=== PATIENT | male | born 1995 | race Caucasian/White ===

== ENCOUNTER 2021-08-23 18:36 | Emergency (ER) | payer MEDICAID, SELFPAY ==
--- NOTE | 2021-08-23 18:51 | ED.OVERDOSE ---
HPI - Overdose General Chief Complaint: Overdose Stated Complaint: overdose Source: patient and EMS Mode of arrival: EMS Limitations: no limitations History of Present Illness HPI Narrative: 26-year-old male presents via EMS for heroin overdose. Patient states that he has been clean for approximately 2 months and is in a program. When he was cleaning his room he found a stash and stated that he was weak and used 1 bag from a bundle. complaint: accidental overdose Onset (ago): hour(s) (Within the hour of arrival) Timing confirmed by: family member Intent: other (Wanted to get high) Context: Intentional Overdose: drug/ETOH problems Context: Accidental Overdose: wanted to get high Associated symptoms: depression Treatments Prior to Arrival: none Related Data Allergies Allergy/AdvReac Type Severity Reaction Status Date / Time shellfish derived Allergy Severe THROAT Unverified 11/30/19 18:29 [SHELLFISH DERIVED] SWELLING Review of Systems Review of Systems: Constitutional: No Fever, No Chills ENT/Mouth: No sore throat, No Rhinorrhea Eyes: No Eye Pain, No Swelling, No Redness Cardiovascular: No Chest Pain, No SOB Respiratory: No Cough, No Sputum Gastrointestinal: No Nausea, No Vomiting, No Diarrhea, No abdominal Pain Genitourinary: No Dysuria, No Hematuria Musculoskeletal: No joint pain, No Myalgias, No Joint Swelling Skin: No Skin Lesions, No rash Neuro: No Weakness, No Numbness, No Loss of Consciousness, No Dizziness, No Headache Psych: Positive heroin overdose, No Anxiety, No Depression, No SI/HI/AH/VH Heme/Lymph: No Bruising, No Bleeding,No Lymphadenopathy Endocrine: No Polyuria, No Polydipsia Yes all other systems are reviewed and are negative [facility] Past Medical History Attestation statement: The following information was validated with the patient. Source: old records reviewed Social History Social History Advance Directives: No Physical Exam Vital Signs: Vital Signs: Last Vital Signs Temp 95.9 F L 08/23/21 19:35 Pulse 89 08/23/21 19:35 Resp 16 08/23/21 19:35 BP 134/89 08/23/21 19:35 Pulse Ox 92 08/23/21 19:35 O2 Del Method 08/23/21 19:35 Appearance: Alert. Oriented X3. Moderate emotional distress. Crying. Eyes: Pupils equal, round and reactive to light. Sclera nonicteric. ENT: Pharynx normal. Neck: Normal inspection. Neck supple. CVS: Normal heart rate and rhythm. Pulses normal. Respiratory: No respiratory distress. Breath sounds normal. Abdomen: Soft and nontender. Vomiting. Skin: Skin warm and dry. Normal skin color. Normal skin turgor. Extremities: No lower extremity edema. Moves all extremities against resistance. Neuro: No motor deficit. No sensory deficit. Cranial nerves 2-12 intact. Course Course Course Narrative: 26-year-old male presents via EMS for heroin overdose. States that the overdose was accidental. Found a bundle of heroin while he was cleaning his room and decided to use a bag. He has been in a program for approximately 2 months and has been clean. Stated he felt weak when he found the bundle of heroin in his room. Overdose was accidental. Patient is vomiting at the time of my evaluation. O2 sats remained between 94 and 97% on room air. He does nod off every once in a while but is easily arousable. He is polite and cooperative at this time. 19:49 maintaining O2 sats at 97% on room air. Easily arousable. 20:40 maintaining O2 sats at 97% on room air. Easily arousable. Even unlabored respirations. Patient to return to detox program. Patient verbalized understanding of and agrees to plan of care to discharge home. Verbalized understanding of signs and symptoms indicating need for emergent intervention MDM - Overdose Differential Diagnosis Differential diagnosis: Likely drug overdose Medical Records Attestation: I reviewed the patient's medical records. Discharge Plan Discharge Clinical Impression: Drug overdose Patient Disposition: Home, Self-Care Instructions: Adult Overdose (ED) Additional Instructions: Please return to detox. Thank you for choosing this emergency department for evaluation. Please follow-up with primary care physician as needed. Return to the emergency department for any new, concerning, or worsening symptoms. Interventions: ED Discharge Assessment Last Done: 08/23/21 20:54 Discharge Date/Time: 08/23/21 21:00
[2021-08-23 19:35] VITALS: BP 134/89; PULSE 89; RESP 16; TEMP 35.5; O2SAT 92
--- NOTE | 2021-08-23 20:12 | MHC.RECOVSUP ---
? Reason for consult:Recovery Support o Current location:ED22H o Identified substance use concern: Heroine - Overdose - Support ? Intervention: o Harm reduction discussion ? Plan: o ? Additional information:Patient refuses detox, Patient is in a [facility] program and wants to be discharged. Patient was in recoveryx2 mos
== END 2021-08-23 21:00 | disposition home or self-care (01) ==
PROVIDERS: Emergency Provider Internal Medicine
DX: T40.1X1A Poisoning by heroin, accidental (unintentional), initial encounter (principal); Y92.9 Unspecified place or not applicable
CPT/HCPCS: 99282

== ENCOUNTER 2021-10-14 11:41 | Emergency (ER) | payer MEDICAID, SELFPAY ==
[2021-10-14 11:53] VITALS: BP 114/61; BP 148/82; PULSE 88; PULSE 93; RESP 18; TEMP 36.7; O2SAT 100; O2SAT 98; BMI 19.0
--- NOTE | 2021-10-14 12:20 | MHC.CARE ---
Call from patient's aunt, Aurora Rodriguez ([phone]), she wanted providers to know that patient is also depressed and she thinks he needs to speak with someone about that while he is here. She is coming to the ED today to see her nephew/offer support.
--- NOTE | 2021-10-14 12:42 | ED_ITS ---
HPI - Overdose General Chief Complaint: Overdose Stated Complaint: OD 2BAGS HEROIN, NARCAN GIVEN W/GOOD RESULT Time Seen by Provider: 10/14/21 12:38 Source: patient and EMS Mode of arrival: EMS Limitations: no limitations History of Present Illness HPI Narrative: Patient comes to the emergency room after an accidental overdose. Patient reports that he is to also carrying this morning. Patient was discharged from [facility] approximately 1 hour ago for an overdose with heroin. Patient requesting resources for detox. Patient received Narcan by family and given a 2nd dose by EMS. Patient is to be ventilated. Patient denies suicidal homicidal ideation, patient states this was an accident. Related Data Allergies Allergy/AdvReac Type Severity Reaction Status Date / Time shellfish derived Allergy Severe THROAT Unverified 11/30/19 18:29 [SHELLFISH DERIVED] SWELLING Review of Systems Review of Systems: Constitutional : No Weight loss, No Fever, No Chills, No Night Sweats, No Fatigue, No Malaise ENT/Mouth : No Hearing loss, No Ear Pain, No Nasal Congestion, No Sinus Pain, No Hoarseness, No sore throat, No Rhinorrhea, No Swallowing Difficulty Eyes: No Eye Pain, No Swelling, No Redness, No Foreign Body, No Discharge, No Vision Changes Cardiovascular : No Chest Pain, No SOB, No Dyspnea on Exertion, No Orthopnea, No Edema, No Palpitations Respiratory : No Cough, No Sputum, No Wheezing, No Smoke Exposure, No Dyspnea Gastrointestinal : No Nausea, No Vomiting, No Diarrhea, No Constipation, No abdominal Pain, No Hematochezia, No Melena Genitourinary : no irregular bleeding, No Dysuria, No Urinary Frequency, No Hematuria, No Urinary Incontinence, No Urgency, No Flank Pain, No Urinary Flow Changes, No Hesitancy Musculoskeletal : No joint pain, No Myalgias, No Joint Swelling Skin : No Skin Lesions, No rash Neuro : No Weakness, No Numbness, No Paresthesias, No Loss of Consciousness, No Dizziness, No Headache Psych : No Anxiety/Panic, No Depression, No SI/HI/AH/VH, complaining substance abuse Heme/Lymph: No Bruising, No Bleeding,No Lymphadenopathy Endocrine : No Polyuria, No Polydipsia, No Temperature Intolerance PMFSH Past Medical History Medical History (Updated 10/14/21 @ 12:46 by Sasha Rojo MD) Overdose Substance abuse Social History Social History Alcohol intake: never Patient Tobacco Use Status: Current everyday Tobacco user Use of substances other than those prescribed or required for medical reasons: Yes Substance Use Type: Heroin Last Used Substance: Just Prior to Admission Advance Directives: No Advance Directives Information Provided: Yes Physical Exam Vital Signs: Vital Signs: Last Vital Signs Temp 98.2 F 10/14/21 15:29 Pulse 70 10/14/21 15:29 Resp 16 10/14/21 15:29 BP 114/71 10/14/21 15:29 Pulse Ox 96 10/14/21 15:29 O2 Del Method 10/14/21 15:29 BMI result Body Mass Index 19.0 Const: Other: Appearance: Alert. Oriented X3. No acute distress. Somnolent but easily arousable Eyes: Pupils equal, round and reactive to light. ENT: Pharynx normal. Neck: Normal inspection. Neck supple. No lymph nodes noted. No crepitus CVS: Normal heart rate and rhythm. Pulses normal. Normal S1 and S2 Respiratory: No respiratory distress. Breath sounds normal. No Wheezing. No rales Abdomen: Soft and nontender. No rigidity. No distention. Skin: Skin warm and dry. Normal skin color. Normal skin turgor. Extremities: No lower extremity edema. No Lacerations. No Rash Neuro: Oriented X 3. No motor deficit. No sensory deficit. Moving all extremities. No slurred speech. CN 2 through 12 grossly intact Psych: calm, cooperative, normal affect Course Course Course Narrative: Patient's vitals are stable, somnolent but easily arousable. Care consult pending for a SUDE evaluatio Patient will be probated with Narcan. Physician observation started at 12:45 Patient declined to be seen by the care team, patient does not want any information. Patient said that he will do it himself. Patient is awake, alert and oriented x3,, cooperative, oxygen saturation has remained above 96% on room air. Patient ready for discharge. Discharge Plan Discharge Clinical Impression: Drug overdose Patient Disposition: Home, Self-Care Instructions: Adult Overdose (ED) Additional Instructions: Please follow-up with your primary care physician tomorrow. If you have any worsening or new symptoms, please return to the emergency room or call 911
--- NOTE | 2021-10-14 13:43 | HO.SUDE ---
Addendum entered by Liz Silvestre 10/14/21 13:58: [facility] bed availability, referral sent, pt currently completing phone intake. Original Note: Met with pt in ED12 after pt presented this morning with accidental overdose. Pt has been at [facility] since June, with one reoccurrence prior to today in August. Pt is not currently on MOUD. Pt reports using last night, 2 bags heroin, IV, which resulted in overdose and being brought to [facility] ED. Pt had been discharged from [facility] to grandmother's house. This morning pt used 2 bags, heroin, IV, which resulted in overdose. Grandmother heard pt fall, found pt and administered Narcan prior to EMS arriving. Pt has been to [facility] in the past, [facility] x 2, [facility] x 1. Last [facility] admission in June. Pt denies SI/HI/AH/VH. Pt states I'm too scared of dying to kill myself. Pt interested in [facility] and further tx, t/w will conduct bedsearch.
[2021-10-14 14:00] VITALS: BP 113/57; PULSE 81; RESP 16; TEMP 37.1; O2SAT 94
[2021-10-14 15:29] VITALS: BP 114/71; PULSE 70; RESP 16; TEMP 36.8; O2SAT 96
--- NOTE | 2021-10-14 18:00 | MHC.CARE ---
Pt was accepted to [facility] for 8:15[facility] detox admission. Pt is aware and is still agreeable for treatment. Pt's family has been updated and will pick pt up and bring him to the facility.
== END 2021-10-14 17:38 | disposition home or self-care (01) ==
PROVIDERS: Emergency Provider Emergency Medicine
DX: T40.1X1A Poisoning by heroin, accidental (unintentional), initial encounter (principal); R40.0 Somnolence; Y92.9 Unspecified place or not applicable; F19.10 Other psychoactive substance abuse, uncomplicated; F17.200 Nicotine dependence, unspecified, uncomplicated
CPT/HCPCS: 99284

== ENCOUNTER 2022-06-23 21:24 | Emergency (ER) | payer MEDICAID, SELFPAY ==
--- NOTE | ~2022-06-23 | XR_ITS ---
EXAMINATION: XR CHEST CLINICAL INFORMATION: Shortness of breath. COMPARISON: 02/12/2017 chest radiographs. TECHNIQUE: Frontal view of the chest was obtained. FINDINGS: No significant abnormality is noted involving the heart, lungs, mediastinum, bony thorax or soft tissues. XR/XR chest 1V IMPRESSION: No acute cardiopulmonary process.
--- NOTE | 2022-06-23 09:09 | ECG_ITS ---
Test Reason : SOB Blood Pressure : / mmHG Vent. Rate : 083 BPM Atrial Rate : 083 BPM P-R Int : 150 ms QRS Dur : 080 ms QT Int : 368 ms P-R-T Axes : 084 094 068 degrees QTc Int : 432 ms Normal sinus rhythm with sinus arrhythmia Rightward axis Borderline ECG When compared with ECG of 30-JUL-2017 23:49, No significant change was found Referred By: Juan Ramon Tatum Electronically Signed By:LOUISE CAMACHO MD
[2022-06-23 21:34] VITALS: BP 148/94; PULSE 79; RESP 22; TEMP 36.1; O2SAT 87; BMI 18.8
--- NOTE | 2022-06-23 21:38 | ED_ITS ---
HPI - SOB/Dyspnea General Chief Complaint: Dyspnea Stated Complaint: Trouble breathing Time Seen by Provider: 06/23/22 21:37 Source: patient Mode of arrival: ambulatory Limitations: no limitations History of Present Illness HPI Narrative: Patient history of bronchitis off and on no diagnosis of asthma with history of vaping been using different product for last few days and feeling the shortness of breath wheezing dry cough no fever no chills on arrival patient is saturating 87% at room air no palpitation no chest no fever no running nose Related Data Previous Rx's Medication Instructions Recorded albuterol sulfate 90 mcg/actuation 2 puff inhalation Q4-6H PRN 06/23/22 aerosol inhaler (ProAir HFA) shortness of breath or wheezing #8.5 grams prednisone 20 mg tablet 40 mg PO DAILY #10 tabs 06/23/22 Allergies Allergy/AdvReac Type Severity Reaction Status Date / Time shellfish derived Allergy Severe THROAT Unverified 11/30/19 18:29 [SHELLFISH DERIVED] SWELLING Review of Systems Review of Systems: Yes all other systems are reviewed and are negative [facility] Past Medical History Medical History Overdose Substance abuse Social History Social History Alcohol intake: never Patient Tobacco Use Status: Current everyday Tobacco user Substance Use Type: Heroin Advance Directives: No Advance Directives Information Provided: Yes Physical Exam Vital Signs: Vital Signs: Last Vital Signs Temp 97 F 06/23/22 21:34 Pulse 79 06/23/22 21:34 Resp 22 H 06/23/22 21:34 BP 148/94 H 06/23/22 21:34 Pulse Ox 87 L 06/23/22 21:34 O2 Del Method Room Air 06/23/22 21:34 BMI result Body Mass Index 18.8 Appearance: Alert. Oriented X3. Moderate respiratory distress thin built Eyes: PERRLA, No Nystagmus ENT: Pharynx normal. Oral Mucosa moist Neck: Normal inspection. Neck supple. CVS: Normal heart rate and rhythm. Pulses normal. Respiratory: mod respiratory distress. Equal air entry bilateral, bilateral wheezing no rales Abdomen: Soft and nontender. Bowel sounds are present, no mass palpable, no CVA tenderness Skin: Skin warm and dry. Normal skin color. Normal skin turgor. Extremities: No lower extremity edema. No calf tenderness Neuro: Oriented X 3. No motor deficit. Medications Administered Generic Name Dose Route Start Last Admin Trade Name Kenzie PRN Reason Stop Dose Admin Sodium Chloride 1,000 mls @ 999 mls/hr 06/23/22 21:41 06/23/22 22:07 Ns IV 06/23/22 22:41 999 mls/hr .Q1H1M ONE Administration Discontinued Medications Generic Name Dose Route Start Last Admin Trade Name Kenzie PRN Reason Stop Dose Admin Albuterol Sulfate 7.5 mg/ 0 mg 06/23/22 21:41 06/23/22 21:50 Albuterol/Ipratropium 3 ml INHALE 06/23/22 21:42 10 each ONCE ONE Administration Magnesium Sulfate 2 gm in 50 mls @ 100 mls/hr 06/23/22 21:42 06/23/22 22:04 Magnesium Sulfate/H2o IV 06/23/22 22:11 100 mls/hr ONCE ONE Administration Methylprednisolone Sodium Succinate 125 mg 06/23/22 21:41 06/23/22 22:01 Methylprednisolone Sod Succ 125 Mg/2 Ml Vial IVPUSH 06/23/22 21:42 125 mg ONCE ONE Administration Medical Decision Making Medical Decision Making MDM Narrative: Patient refused COVID and flu test refused to stay in the ER for longer says he is feeling better after treatment saturating 89% at room air still does not want to stay in the hospital and aware of risk of . Will give him inhaler prednisone advised him to come back patient signed against medical advice Lab Data MDM Lab Attestation statement: I reviewed the patient's lab results. 06/23/22 21:45 06/23/22 21:45 Labs: Lab Results 06/23/22 06/23/22 Range/Units 21:45 21:45 WBC 9.0 (4.8-10.8) X10*3/uL RBC 5.19 (4.60-5.80) X10*6/uL Hgb 15.1 (14.0-18.0) g/dl Hct 44.5 (42.0-52.0) % MCV 85.7 (80.0-98.0) fL MCH 29.1 (27.0-33.0) pg MCHC 33.9 (31.0-36.0) g/dl RDW 12.2 (11.0-16.0) % Plt Count 255 (160-400) X10*3/uL MPV 9.2 L (9.4-12.4) fL Absolute Nucleated RBC 0.000 (0.0-0.012) X10*3/uL Nucleated RBC % (auto) 0.0 (0.0-0.2) /100WBC Sodium 140 (135-145) mmol/L Potassium 4.7 (3.3-5.1) mmol/L Chloride 101 (96-108) mmol/L Carbon Dioxide 30 H (22-29) mmol/L Anion Gap 14 (12-20) BUN 8 L (9-16) mg/dL Creatinine 0.78 (0.5-1.4) mg/dL Estim Creat Clear Calc 122.1 Estimated GFR > 60 Random Glucose 100 (60-115) mg/dL Calcium 9.4 (8.4-10.2) mg/dL Total Bilirubin 0.4 (0.0-1.0) mg/dL AST 21 (5-37) U/L ALT 12 (0-40) U/L Alkaline Phosphatase 70 (39-117) U/L Total Protein 7.2 (6.5-8.0) g/dL Albumin 4.2 (3.5-5.0) g/dL Discharge Plan Discharge Clinical Impression: Asthma with exacerbation Patient Disposition: Left Against Medical Advice Instructions: Asthma (ED) Additional Instructions: Take your inhaler and prednisone as prescribed and come back to the ER for further management Prescriptions: New prednisone 20 mg tablet 40 mg PO DAILY Qty: 10 0RF albuterol sulfate [ProAir HFA] 90 mcg/actuation HFA aerosol inhaler 2 puff inhalation Q4-6H PRN (Reason: shortness of breath or wheezing) Qty: 8.5 1RF Stand Alone Forms: Against Medical Advice
[2022-06-23 21:53] LABS: Hematocrit 44.5 % (42.0-52.0); Hemoglobin 15.1 g/dl (14.0-18.0); Mean Corpuscular HGB Conc 33.9 g/dl (31.0-36.0); Mean Corpuscular Hemoglobin 29.1 pg (27.0-33.0); Mean Corpuscular Volume 85.7 fL (80.0-98.0); Mean Platelet Volume 9.2 fL (9.4-12.4); Platelet Count 255 X10*3/uL (160-400); Red Blood Count 5.19 X10*6/uL (4.60-5.80); Red Cell Distribution Width 12.2 % (11.0-16.0)
[2022-06-23 22:00] VITALS: PULSE 89; RESP 20; O2SAT 96
[2022-06-23] MEDS: methylPREDNISolone Sod Succ 125 MG/2 ML VIAL IVPUSH (22:01)
[2022-06-23] MEDS: Magnesium Sulfate/H2O 2 GM/50 ML PIGGYBACK IV (22:04)
[2022-06-23] MEDS: 0.9 % Sodium Chloride 1,000 ML 999 ML IV (22:07)
--- NOTE | 2022-06-23 22:08 | PC.NURSE ---
Addendum entered by Madonna Sher 06/23/22 22:41: Pt speaking in full sentences, states I want to leave, I need to go, I feel better and my oxygen is always in the 80's provider Dr. Tatum notified, multiple attempts made to reassure Pt. Pt continued to rip off wires. O2 sat 88-89% on RA. AMA form signed. Original Note: Pt A&Ox4, o2 sat 86% on RA, placed on 2L NC with increase o2 sat 91%, RR 22, Pt pale, speaking with words. Lung sounds wheezy throughout. Respiratory therapist at bedside. IV line placed, lab work collected and sent to lab. Meds given as documented. Will CTM.
[2022-06-23 22:22] LABS: Alanine Aminotransferase 12 U/L (0-40); Albumin Level 4.2 g/dL (3.5-5.0); Alkaline Phosphatase 70 U/L (39-117); Anion Gap 14 (12-20); Aspartate Amino Transferase 21 U/L (5-37); Bilirubin Total 0.4 mg/dL (0.0-1.0); Blood Urea Nitrogen 8 mg/dL (9-16); Calcium 9.4 mg/dL (8.4-10.2); Carbon Dioxide 30 mmol/L (22-29); Chloride 101 mmol/L (96-108); Creatinine Clr Calc Pharmacy 122.1; Estimated Glomerular Filt Rate > 60; Glucose Random 100 mg/dL (60-115); Potassium 4.7 mmol/L (3.3-5.1); Sodium 140 mmol/L (135-145); Total Protein 7.2 g/dL (6.5-8.0)
[2022-06-23] MEDS: dexAMETHasone 2 MG TABLET 10 MG PO (22:27)
[2022-06-23] MEDS: Albuterol Sulfate 90 MCG 8 GM INHALER 4 PUFF INHALE (22:28)
[2022-06-23 22:30] VITALS: PULSE 98; O2SAT 89
== END 2022-06-23 22:47 | disposition left against medical advice (07) ==
PROVIDERS: Emergency Provider Internal Medicine
DX: J45.901 Unspecified asthma with (acute) exacerbation (principal); R06.02 Shortness of breath; I49.8 Other specified cardiac arrhythmias; R05.9 Cough, unspecified; Z79.899 Other long term (current) drug therapy
CPT/HCPCS: 36415; 71045; 80053; 85027; 93005; 96361; 96374; 96375; 99284; J2930; J3475; J8540

== ENCOUNTER 2023-09-01 09:28 | Emergency (ER) | payer SELFPAY ==
--- NOTE | 2023-09-01 | ECG_ITS ---
Test Reason : overdose Blood Pressure : / mmHG Vent. Rate : 066 BPM Atrial Rate : 066 BPM P-R Int : 164 ms QRS Dur : 090 ms QT Int : 420 ms P-R-T Axes : 077 093 078 degrees QTc Int : 440 ms Normal sinus rhythm Rightward axis Cannot rule out Anterior infarct , age undetermined Abnormal ECG When compared with ECG of 23-JUN-2022 21:37, Nonspecific T wave abnormality now evident in Anterior leads Referred By: Generic ED Physician Electronically Signed By:Baldemar Coon
[2023-09-01 09:29] VITALS: BP 152/100; PULSE 102; O2SAT 99
[2023-09-01 09:33] VITALS: BP 125/94; PULSE 79; RESP 16; TEMP 36.7; O2SAT 100; BMI 17.5
[2023-09-01 09:44] VITALS: PULSE 79
--- NOTE | 2023-09-01 09:45 | PC.NURSE ---
Addendum entered by Yuridia Hylton 09/01/23 12:13: pt changed over w/ security - belongings in . Original Note: pt biba from accidental overdose in his car. pt verbalizes not using drugs via IV since january and decided to relapse because I wanted to. pt denies any thoughts of SI/HI. pt reports using 2 [address] of [address] PD on scene/administered 4mg of narcan w/ good effect. pt has no complaints. denies pain. labs obtained/ekg performed by tech. no sob/wob noted. respirations even/unlabored. plan of care ongoing. call brown placed within reach.
[2023-09-01 09:46] LABS: MANUAL DIFF FLAG NO
[2023-09-01 09:49] LABS: Basophils Absolute Auto 0.1 X10*3/uL (0.0-0.2); Basophils Percent Auto 0.7 % (0-2); Eosinophils Absolute Auto 0.6 X10*3/uL (0.0-0.4); Eosinophils Percent Auto 6.9 % (0-4); Hematocrit 42.8 % (42.0-52.0); Hemoglobin 14.5 g/dl (14.0-18.0); Imm Gran Abs Auto 0.03 X10*3/uL (0.00-0.03); Imm Gran Pct Auto 0.3 % (0.0-0.4); Lymphocytes Absolute Auto 2.8 X10*3/uL (1.2-4.9); Lymphocytes Percent Auto 31.2 % (20-40); Mean Corpuscular HGB Conc 33.9 g/dl (31.0-36.0); Mean Corpuscular Hemoglobin 29.6 pg (27.0-33.0); Mean Corpuscular Volume 87.3 fL (80.0-98.0); Mean Platelet Volume 9.1 fL (9.4-12.4); Monocytes Absolute Auto 0.8 X10*3/uL (0.1-1.2); Monocytes Percent Auto 8.7 % (2-11); Neutrophils Absolute Auto 4.7 x10*3/uL (2.0-8.3); Neutrophils Percent Auto 52.2 % (45-73); Platelet Count 280 X10*3/uL (160-400); White Blood Count 8.9 X10*3/uL (4.8-10.8)
[2023-09-01 10:02] LABS: Alanine Aminotransferase 8 U/L (0-40); Albumin Level 4.3 g/dL (3.5-5.0); Alkaline Phosphatase 60 U/L (39-117); Anion Gap 11 (12-20); Aspartate Amino Transferase 13 U/L (5-37); Bilirubin Total 0.2 mg/dL (0.0-1.0); Blood Urea Nitrogen 8 mg/dL (9-16); Calcium 9.3 mg/dL (8.4-10.2); Carbon Dioxide 30 mmol/L (22-29); Chloride 105 mmol/L (96-108); Creatinine Clr Calc Pharmacy 108.4; Estimated Glomerular Filt Rate > 60; Glucose Random 63 mg/dL (60-115); Potassium 3.7 mmol/L (3.3-5.1); Sodium 142 mmol/L (135-145); Total Protein 7.1 g/dL (6.5-8.0)
[2023-09-01 10:04] LABS: Acetaminophen LAB < 3 mcg/mL (<30); Salicylate < 5.0 mg/dL (15-30)
--- NOTE | 2023-09-01 10:12 | PC.NURSE ---
pt speaking w/ J LUIS Hill from the recovery team at this time.
--- NOTE | 2023-09-01 10:43 | HO.SUDE ---
Met with pt in ED19 after pt BIBA after overdose requiring Narcan. Pt laying in bed, awake, alert, engages in conversation, appears comfortable. Pt reports feeling okay. Pt reports he had been in recovery since January 2023 and used 1 bag heroin/fentanyl last night, [place], states it didn't do anything. Pt reports this morning due to stress he was in the [employer] parking lot and used 2 bags heroin/fentanyl, IV, which resulted in overdose. Pt reports he is on 130 mg methadone through [facility] 1 year and this has helped him maintain recovery. 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 Pt reports he has a safe place to live. Pt reports overdose was not intentional. Pt reports longest time in recovery was 1 year. Pt reports he has supports in place including grandmother and girlfriend. Discussed recovery support options, pt not interested at this time. Pt reports he is familair with recovery resources and treatment options, declines referrals. Pt denies questions or concerns for t/w.
--- NOTE | 2023-09-01 10:52 | ED_ITS ---
HPI - Overdose General Chief Complaint: Overdose Stated Complaint: OD,NARCAN GIVEN W/GOOD RESULT PER EMS Time Seen by Provider: 09/01/23 09:29 Source: patient, EMS, RN notes reviewed and old records reviewed Mode of arrival: EMS History of Present Illness ED Provider: Lauren Jon PA-C HPI Narrative: 28-year-old male with a past medical history of IVDA presenting to the ED via EMS s/p accidental overdose while in his car. Patient admits to injecting 2 bags of heroin, given 4 mg of intranasal Narcan [employer] with good effect. Patient states he has been clean since January however relapsed today. Also reports marijuana use. Denies other illicit substances or EtOH. Denies injury/trauma or fall, headache, SI/HI Related Data Previous Rx's ?Medication ?Instructions ?Recorded albuterol sulfate 90 mcg/actuation 2 puff inhalation Q4-6H PRN 06/23/22 aerosol inhaler (ProAir HFA) shortness of breath or wheezing #8.5 grams prednisone 20 mg tablet 40 mg (2 x 20 mg) PO DAILY #10 tabs 06/23/22 Allergies Allergy/AdvReac Type Severity Reaction Status Date / Time shellfish derived Allergy Severe THROAT Verified 09/01/23 09:33 [SHELLFISH DERIVED] SWELLING Review of Systems 2 Review of Systems: Constitutional: No Fever, No Chills, No Fatigue, No Malaise Cardiovascular: No Chest Pain, No SOB Respiratory: No Cough Gastrointestinal: No Nausea, No Vomiting, No Abdominal pain Musculoskeletal: No joint pain, No Myalgias, No Joint Swelling Skin: No Skin Lesions, No rash Neuro: No Weakness, No Loss of Consciousness, No Dizziness, No Headache Psych: No Anxiety/Panic, No Depression, No SI/HI/AH/VH, No Social Issues Yes all other systems are reviewed and are negative Constitutional: Constitutional: Reports as per HPI [facility] Past Medical History Attestation statement: The following information was validated with the patient. Source: old records reviewed Medical History Overdose Substance abuse Social History Social History Alcohol intake: current Alcohol intake frequency: a few times a week Patient Tobacco Use Status: Current everyday Tobacco user Smoked in Last 30 Days: Yes Use of substances other than those prescribed or required for medical reasons: Yes Substance Use Type: Heroin, IV Drugs and Marijuana Substance Use Frequency: Recent Binge Last Used Substance: Just Prior to Admission Do you have a plan to hurt others: No Plan Physical Exam 2 Vital Signs: Vital Signs: Last Vital Signs Temp 98.0 F 09/01/23 12:12 Pulse 56 09/01/23 12:12 Resp 16 09/01/23 12:12 BP 106/70 09/01/23 12:12 Pulse Ox 98 09/01/23 12:12 O2 Del Method Room Air 09/01/23 12:12 BMI result Body Mass Index 17.5 Const: Other: Appears under the influence, lethargic however easily arousable, poor hygiene General: cooperative and no acute distress Orientation/consciousness: p atient oriented x3 HEENT: Head: Yes normal to inspection and Yes atraumatic Ears: hearing grossly normal bilaterally General nose exam: Normal external nose present Face and sinus: Yes normal facial exam Eyes: General: appearance normal, both eyes and all related structures EOM: EOMs intact bilaterally Neck: Neck: Yes normal visual inspection and Yes no meningeal signs Resp: Effort & Inspection: normal respiratory effort and no respiratory distress Cardio: Rate: regular rate GI: Inspection: Yes normal to inspection Palpation (GI): Soft to palpation, nontender, no guarding and not rigid Skin: Rashes: no rashes Wounds: no wounds Neuro: General: patient oriented x3, tone normal and no meningeal signs C ranial nerves: Yes CN's II-XII intact bilaterally Gait exam (Neuro): Normal gait present Extrem: General: Yes normal to inspection Psych: Thought content: suicidality and no homicidality Course Course Course Narrative: -1059--labs reassuring -1140--patient requesting to be discharged. Awake and alert. Addiction medicine evaluated patient he is declining all services, currently receives methadone through [facility] > Patient will be discharged with Narcan to go Medications Administered Discontinued Medications Generic Name Dose Route Start Last Admin Trade Name Freq PRN Reason Stop Dose Admin Naloxone HCl 8 mg 09/01/23 09:52 09/01/23 12:12 Naloxone Hcl Nasal Take Home 4 Mg [place] NOSTRILALT 09/01/23 09:53 8 mg ONCE ONE Administration Medical Decision Making Medical Decision Making [facility] Narrative: 28-year-old male with a past medical history of IVDA presenting to the ED via EMS s/p accidental overdose while in his car. Patient admits to injecting 2 bags of heroin, given 4 mg of intranasal Narcan [employer] with good effect. On exam vital signs stable, NAD, appears under the influence, lethargic however easily arousable, no evidence of trauma. Denies SI/HI. Concern for accidental overdose. Low suspicion for trauma/ICH Plan: Tox screen, observe and re-evaluate for clinical sobriety. > EKG and labs ordered by nursing Please refer to course for remaining clinical decision making, interpretation of labs/imaging results, and discussions with consultants and/or family members. Differential Diagnosis Differential Diagnoses: The differential diagnosis associated with the presentation includes As above Admission/Observation Consideration of admission/observation: Escalation of care including admission/observation considered Lab Data MDM Lab Attestation statement: I reviewed the patient's lab results. 09/01/23 09:41 09/01/23 09:41 Labs: Lab Results 09/01/23 Range/Units 09:41 WBC 8.9 (4.8-10.8) X10*3/uL RBC 4.90 (4.60-5.80) X10*6/uL Hgb 14.5 (14.0-18.0) g/dl Hct 42.8 (42.0-52.0) % MCV 87.3 (80.0-98.0) fL MCH 29.6 (27.0-33.0) pg MCHC 33.9 (31.0-36.0) g/dl RDW 12.0 (11.0-16.0) % Plt Count 280 (160-400) X10*3/uL MPV 9.1 L (9.4-12.4) fL Immature Gran % (Auto) 0.3 (0.0-0.4) % Neut % (Auto) 52.2 (45-73) % Lymph % (Auto) 31.2 (20-40) % [place] % (Auto) 8.7 (2-11) % Eos % (Auto) 6.9 H (0-4) % Baso % (Auto) 0.7 (0-2) % Lymph # (Auto) 2.8 (1.2-4.9) X10*3/uL [place] # (Auto) 0.8 (0.1-1.2) X10*3/uL Eos # (Auto) 0.6 H (0.0-0.4) X10*3/uL Baso # (Auto) 0.1 (0.0-0.2) X10*3/uL Abs Immat Gran (auto) 0.03 (0.00-0.03) X10*3/uL Absolute Neuts (auto) 4.7 (2.0-8.3) x10*3/uL Absolute Nucleated RBC 0.000 (0.0-0.012) X10*3/uL Nucleated RBC % (auto) 0.0 (0.0-0.2) /100WBC Sodium 142 (135-145) mmol/L Potassium 3.7 (3.3-5.1) mmol/L Chloride 105 (96-108) mmol/L Carbon Dioxide 30 H (22-29) mmol/L Anion Gap 11 L (12-20) BUN 8 L (9-16) mg/dL Creatinine 0.81 (0.5-1.4) mg/dL Estim Creat Clear Calc 108.4 Estimated GFR > 60 Random Glucose 63 (60-115) mg/dL Calcium 9.3 (8.4-10.2) mg/dL Total Bilirubin 0.2 (0.0-1.0) mg/dL AST 13 (5-37) U/L ALT 8 (0-40) U/L Alkaline Phosphatase 60 (39-117) U/L Total Protein 7.1 (6.5-8.0) g/dL Albumin 4.3 (3.5-5.0) g/dL Salicylates < 5.0 L (15-30) mg/dL Acetaminophen < 3 (<30) mcg/mL Independent Interpretation I performed an independent interpretation of an: EKG (My interpretation EKG normal sinus rhythm rate of 66. CT interval 164. QTC 440. No STEMI ) Independent Historian Clinical information obtained from an independent historian. History obtained from or confirmed by: EMS External Record Review External record reviewed: Inpatient record, Office record, Outpatient record, Prior outpatient labs, Prior outpatient radiology, Primary care record and Outside ED record Tests considered The following testing was considered but not selected: As above Social Determinants Patient?s care significantly limited by Social Determinants of Health including: Inadequate housing, Low income, Alcoholism and drug addiction in family and Problems related to primary support group Discharge Plan Discharge Clinical Impression: Overdose Patient Disposition: Home, Self-Care Instructions: Adult Overdose (ED) Additional Instructions: Please avoid drugs and alcohol this can kill you Continue to follow-up with [facility] Please carry Narcan on you at all times Considered detox Prescriptions: No Action prednisone 20 mg tablet 40 mg PO DAILY Qty: 10 0RF albuterol sulfate [ProAir HFA] 90 mcg/actuation HFA aerosol inhaler 2 puff inhalation Q4-6H PRN (Reason: shortness of breath or wheezing) Qty: 8.5 1RF Referrals: [facility] [Provider Group] Kayla Mauricio CNP [Nurse Practitioner] - Interventions: ED Discharge Assessment Last Done: 09/01/23 12:12 Discharge Date/Time: 09/01/23 12:14 Print Language: American
[2023-09-01 12:12] VITALS: BP 106/70; PULSE 56; RESP 16; TEMP 36.7; O2SAT 98
[2023-09-01] MEDS: Naloxone HCl Nasal TAKE HOME 4 MG SPRAY 8 MG NOSTRILALT (12:12)
--- NOTE | 2023-09-01 12:13 | PC.NURSE ---
provider ok w/ d/c prior to urine obtained. pt provided w/ take home narcan. belongings obtained from [employer].
== END 2023-09-01 12:14 | disposition home or self-care (01) ==
PROVIDERS: Physician Assistant; Emergency Provider Emergency Medicine
DX: T40.1X1A Poisoning by heroin, accidental (unintentional), initial encounter (principal); Y92.9 Unspecified place or not applicable; R94.31 Abnormal electrocardiogram [ECG] [EKG]; F11.10 Opioid abuse, uncomplicated; Z79.899 Other long term (current) drug therapy
CPT/HCPCS: 36415; 80053; 80143; 80179; 85025; 93005; 99284

== ENCOUNTER → 2023-09-01 09:37 | Outpatient (BNV) | payer SELFPAY | PROVIDERS: Emergency Provider Emergency Medicine; Visit Provider Internal Medicine Cardiovascular Disease | DX: R94.31 Abnormal electrocardiogram [ECG] [EKG] (principal) | CPT/HCPCS: 93010 ==

== ENCOUNTER 2023-10-14 16:09 | Emergency (ER) | payer MEDICAID, SELFPAY ==
[2023-10-14 16:36] VITALS: BP 108/59; PULSE 60; RESP 16; TEMP 36.3; O2SAT 97
--- NOTE | 2023-10-14 16:37 | MHC.EDTECH ---
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
[2023-10-14 16:45] VITALS: BP 115/76; PULSE 60; PULSE 72; O2SAT 100; O2SAT 99; BMI 19.7
--- NOTE | 2023-10-14 16:55 | PC.NURSE ---
Pt comes to ED today via EMS s/p OD at home. Per reoprt, Pt was scheduled to report to a detox treatment facility today and wanted to use heroin before going in. Pt was found by grandmother who administered 8mg Narcan with good result. No additional narcan given by EMS as he was presenting stable. VSS, A&Ox3. Provider at bedside and will initiate care team consult.
--- NOTE | 2023-10-14 16:58 | ED_ITS ---
HPI - General Adult General Chief complaint: Overdose Stated complaint: HEROINE OD Time Seen by Provider: 10/14/23 16:42 Source: patient, RN notes reviewed and old records reviewed Mode of arrival: EMS Limitations: no limitations History of Present Illness ED Provider: James DOMINGUEZ narrative: 28-year-old male presents for evaluation of an accidental drug overdose. Patient admits to using heroin prior to arrival. Apparently his grandmother found him administer Narcan 8 mg intranasally The patient admits that he was due to go to detox today and ?this was kind of like a last use. Is adamant he was not intentionally overdosing. He is interested in speaking to addiction Medicine regarding detox He is awake, alert and oriented he only complains of ?feeling tired. ? Related Data Previous Rx's ?Medication ?Instructions ?Recorded albuterol sulfate 90 mcg/actuation 2 puff inhalation Q4-6H PRN 06/23/22 aerosol inhaler (ProAir HFA) shortness of breath or wheezing #8.5 grams prednisone 20 mg tablet 40 mg (2 x 20 mg) PO DAILY #10 tabs 06/23/22 Allergies Allergy/AdvReac Type Severity Reaction Status Date / Time shellfish derived Allergy Severe THROAT Verified 10/14/23 16:47 [SHELLFISH DERIVED] SWELLING Review of Systems 2 Constitutional: Constitutional: Denies body ache(s), Denies chills, Denies fever(s) and Denies headache(s) Eyes: Eyes: Denies blurry vision ENT: Denies headache(s) and Denies sore throat Cardiovascular: Cardiovascular: Denies chest pain and Denies dyspnea Respiratory: Respiratory: Denies cough and Denies dyspnea Gastrointestinal: Gastrointestinal: Denies abdominal pain, Denies nausea and Denies vomiting Musculoskeletal: Musculoskeletal: Denies back pain Integumentary/Breasts: Skin/Breast: Denies rash Neurologic: Denies headache(s) Psychiatric: Psychiatric: Denies suicidal ideation [facility] Past Medical History Medical History Overdose Substance abuse Social History Social History Alcohol intake: current Alcohol intake frequency: a few times a week Patient Tobacco Use Status: Current everyday Tobacco user Smoked in Last 30 Days: No Use of substances other than those prescribed or required for medical reasons: Yes Substance Use Type: Heroin Last Used Substance: Just Prior to Admission Advance Directives: No Advance Directives Information Provided: No Do you have a plan to hurt others: No Plan Physical Exam ED Vital Signs: Vital Signs - 24 hr 10/14/23 16:36 10/14/23 16:45 10/14/23 17:50 Temperature 97.4 F Pulse Rate 60 72 69 Respiratory Rate 16 12 Blood Pressure 108/59 L 115/76 103/52 L Pulse Oximetry 97 100 96 Oxygen Delivery Method Room Air Room Air Room Air 10/14/23 18:09 Temperature 98.1 F Pulse Rate 64 Respiratory Rate 16 Blood Pressure 122/69 Pulse Oximetry 97 Oxygen Delivery Method Room Air BMI result Body Mass Index 19.7 Const General: healthy appearing, comfortable, no acute distress, alert and awake Nutritional Appearance: well nourished Orientation/consciousness: patient oriented x3 HENMT Head: Yes normocephalic and Yes atraumatic Eyes Eyelids: Yes eyelids normal Conjunctivae: conjunctivae normal Sclerae: sclerae normal Corneas: corneas normal Pupils: Equal, round and reactive pupils present EOM: EOMs intact bilaterally Neck Neck: Yes full ROM Resp Effort & Inspection: normal respiratory effort, able to speak in complete sentences, no audible wheezes and not labored Auscultation: clear to auscultation bilaterally Cardio Rate: regular rate Rhythm: regular rhythm GI Inspection: No distended Palpation (GI): Soft to palpation, not firm, nontender, no guarding and not rigid Skin General skin exam: elasticity normal Neuro General: patient oriented x3 Cranial nerves: Yes Equal, round and reactive pupils present and Yes Bilaterally intact EOM present Cognition (Neuro): normal cognition Extrem Other: Moving all extremities well without any obvious deformities Course Reevaluation(s) Reevaluation #1: Patient initially presented requesting consideration for detox. He spoke with addiction medicine and plan was to get him a discharged to [facility] as that is with the patient had a bed for today. They were willing to reconsider him for tonight or possibly tomorrow morning. However the patient has been in the ER for about 2 hours this time. He is now requesting discharge. He remains awake, alert and oriented. He was not suicidal. The patient reports he has lots of Narcan at home and declines take home Narcan. He will be discharged per his request. I did discuss his mild anemia with him, he denies black or bloody stool and declines any further workup including rectal exam Time: 18:17 Medical Decision Making Medical Decision Making [facility] Narrative: 28-year-old male with long history of opiate abuse presents for evaluation of a self-reported overdose. Patient admits to an accidental overdose. He was administered Narcan field. Plan for basic labs, EKG, drug screen Differential Diagnosis Differential Diagnoses: The differential diagnosis associated with the presentation includes Accidental overdose Substance abuse Depression Opiate abuse Lab Data [facility] Lab Attestation statement: I reviewed the patient's lab results. Mild normocytic anemia, which is new compared to baseline. No significant electrolyte abnormalities 10/14/23 17:28 10/14/23 17:27 Labs: Lab Results 10/14/23 10/14/23 10/14/23 Range/Units 17:27 17:28 17:30 WBC 8.1 (4.8-10.8) X10*3/uL RBC 4.41 L (4.60-5.80) X10*6/uL Hgb 12.7 L (14.0-18.0) g/dl Hct 38.4 L (42.0-52.0) % MCV 87.1 (80.0-98.0) fL MCH 28.8 (27.0-33.0) pg MCHC 33.1 (31.0-36.0) g/dl RDW 12.2 (11.0-16.0) % Plt Count 270 (160-400) X10*3/uL MPV 9.4 (9.4-12.4) fL Immature Gran % (Auto) 0.1 (0.0-0.4) % Neut % (Auto) 60.9 (45-73) % Lymph % (Auto) 24.9 (20-40) % [place] % (Auto) 11.6 H (2-11) % Eos % (Auto) 2.0 (0-4) % Baso % (Auto) 0.5 (0-2) % Lymph # (Auto) 2.0 (1.2-4.9) X10*3/uL [place] # (Auto) 0.9 (0.1-1.2) X10*3/uL Eos # (Auto) 0.2 (0.0-0.4) X10*3/uL Baso # (Auto) 0.0 (0.0-0.2) X10*3/uL Abs Immat Gran (auto) 0.01 (0.00-0.03) X10*3/uL Absolute Neuts (auto) 4.9 (2.0-8.3) x10*3/uL Absolute Nucleated RBC 0.000 (0.0-0.012) X10*3/uL Nucleated RBC % (auto) 0.0 (0.0-0.2) /100WBC Sodium 142 (135-145) mmol/L Potassium 3.8 (3.3-5.1) mmol/L Chloride 106 (96-108) mmol/L Carbon Dioxide 29 (22-29) mmol/L Anion Gap 11 L (12-20) BUN 10 (9-16) mg/dL Creatinine 0.71 (0.5-1.4) mg/dL Estim Creat Clear Calc 123.7 Estimated GFR > 60 Random Glucose 80 (60-115) mg/dL Calcium 9.3 (8.4-10.2) mg/dL Total Bilirubin 0.3 (0.0-1.0) mg/dL AST 14 (5-37) U/L ALT 7 (0-40) U/L Alkaline Phosphatase 72 (39-117) U/L Total Protein 6.9 (6.5-8.0) g/dL Albumin 3.9 (3.5-5.0) g/dL Lipase 34 (8-78) U/L Salicylates < 5.0 L (15-30) mg/dL Urine Opiates Screen POSITIVE H (Not Detect) Ur Buprenorphine Scrn Not Detected (Not Detect) ng/mL Ur Oxycodone Screen Not Detected (Not Detect) ng/mL Urine Methadone Screen Not Detected (Not Detect) ng/mL Urine Fentanyl Screen POSITIVE H (Not Detect) Acetaminophen < 3 (<30) mcg/mL Ur Barbiturates Screen Not Detected (Not Detect) Ur Phencyclidine Scrn Not Detected (Not Detect) Ur Amphetamines Screen Not Detected (Not Detect) U Benzodiazepines Scrn Not Detected (Not Detect) Urine Cocaine Screen POSITIVE H (Not Detect) U Marijuana (THC) Screen Not Detected (Not Detect) Ethyl Alcohol < 10 mg/dL Discharge Plan Discharge Clinical Impression: Overdose, Anemia, mild Patient Disposition: Home, Self-Care Instructions: Anemia (ED), Adult Overdose (ED) Additional Instructions: Return for new or worsening symptoms. Your blood work showed a mild anemia or slightly low blood counts. Follow-up with your primary doctor, you may return to the ER noticed any black or bloody stool Prescriptions: No Action prednisone 20 mg tablet 40 mg PO DAILY Qty: 10 0RF albuterol sulfate [ProAir HFA] 90 mcg/actuation HFA aerosol inhaler 2 puff inhalation Q4-6H PRN (Reason: shortness of breath or wheezing) Qty: 8.5 1RF Print Language: Khmer
--- NOTE | 2023-10-14 17:39 | MHC.RECOVSUP ---
? Reason for consult Recovery support o Current location: ED22H o Identified substance use concern: Heroin - Overdose - Seeking ATS (detox) - Support ? Intervention: o Community resources provided o Harm reduction discussion ? Plan: o Patient to follow up with [facility] after discharge ? Additional information: Met with patient and he stated that he had a bed at [facility] in [facility], but went to do a bag before going and he OD. I called [facility] and they asked for paper work due to OD. Paperwork was faxs waiting for response. The Care team was updated and is working on it. and [facility] say No the next plan is walk in at [place] 7am.
[2023-10-14 17:49] LABS: Hemoglobin 12.7 g/dl (14.0-18.0); Mean Platelet Volume 9.4 fL (9.4-12.4)
[2023-10-14 17:50] VITALS: BP 103/52; PULSE 69; RESP 12; O2SAT 96
[2023-10-14 17:51] LABS: Amphetamine Screen Urine Not Detected (Not Detect); Barbiturates, Urine Not Detected (Not Detect); Benzodiazepines Screen Urine Not Detected (Not Detect); Buprenorphine Scr Not Detected (Not Detect); Cannabinoid Screen Urine Not Detected (Not Detect); Cocaine Screen Urine POSITIVE (Not Detect); Fentanyl, urine POSITIVE (Not Detect); Methadone Screen, Urine Not Detected (Not Detect); Opiate Screen Urine POSITIVE (Not Detect); Oxycodone Screen Urine Not Detected (Not Detect); Phencyclidine Screen Urine Not Detected (Not Detect)
[2023-10-14 17:51] LABS: Basophils Percent Auto 0.5 % (0-2); Eosinophils Absolute Auto 0.2 X10*3/uL (0.0-0.4); Hematocrit 38.4 % (42.0-52.0); Imm Gran Abs Auto 0.01 X10*3/uL (0.00-0.03); Imm Gran Pct Auto 0.1 % (0.0-0.4); Lymphocytes Percent Auto 24.9 % (20-40); Mean Corpuscular HGB Conc 33.1 g/dl (31.0-36.0); Mean Corpuscular Hemoglobin 28.8 pg (27.0-33.0); Mean Corpuscular Volume 87.1 fL (80.0-98.0); Monocytes Absolute Auto 0.9 X10*3/uL (0.1-1.2); Monocytes Percent Auto 11.6 % (2-11); Neutrophils Absolute Auto 4.9 x10*3/uL (2.0-8.3); Neutrophils Percent Auto 60.9 % (45-73); Red Blood Count 4.41 X10*6/uL (4.60-5.80); Red Cell Distribution Width 12.2 % (11.0-16.0)
[2023-10-14 17:52] LABS: Platelet Count 270 X10*3/uL (160-400); White Blood Count 8.1 X10*3/uL (4.8-10.8)
[2023-10-14 17:59] LABS: Anion Gap 11 (12-20); Blood Urea Nitrogen 10 mg/dL (9-16); Carbon Dioxide 29 mmol/L (22-29); Chloride 106 mmol/L (96-108); Creatinine Clr Calc Pharmacy 123.7; Estimated Glomerular Filt Rate > 60; Glucose Random 80 mg/dL (60-115); Potassium 3.8 mmol/L (3.3-5.1); Sodium 142 mmol/L (135-145)
[2023-10-14 18:00] LABS: Alanine Aminotransferase 7 U/L (0-40); Albumin Level 3.9 g/dL (3.5-5.0); Alkaline Phosphatase 72 U/L (39-117); Aspartate Amino Transferase 14 U/L (5-37); Bilirubin Total 0.3 mg/dL (0.0-1.0); Calcium 9.3 mg/dL (8.4-10.2); Ethanol < 10 mg/dL; Lipase 34 U/L (8-78); Total Protein 6.9 g/dL (6.5-8.0)
[2023-10-14 18:00] LABS: Acetaminophen LAB < 3 mcg/mL (<30); Salicylate < 5.0 mg/dL (15-30)
--- NOTE | 2023-10-14 18:07 | PC.NURSE ---
Patient refusing vitals and EKG will notify Provider.
[2023-10-14 18:09] VITALS: BP 122/69; PULSE 64; RESP 16; TEMP 36.7; O2SAT 97
--- NOTE | 2023-10-14 18:13 | MHC.EDTECH ---
PROVIDER RADHA AND RN ASIYA RhodesS AWARE THAT PATIENT REFUSED EKG ANDIS REQUESTING HIS DISCHARGED PAPER WORK .
--- NOTE | 2023-10-14 18:16 | MHC.RECOVSUP ---
Patient refused service and wants to leave.
[2023-10-14 18:31] VITALS: BP 0/0; PULSE 0; RESP 0; TEMP -17.7; TEMP 0
== END 2023-10-14 18:35 | disposition home or self-care (01) ==
PROVIDERS: Physician Assistant; Emergency Provider Emergency Medicine
DX: T40.1X1A Poisoning by heroin, accidental (unintentional), initial encounter (principal); F19.10 Other psychoactive substance abuse, uncomplicated; Y92.009 Unspecified place in unspecified non-institutional (private) residence as the place of occurrence of the external cause; D64.9 Anemia, unspecified; F17.200 Nicotine dependence, unspecified, uncomplicated; Z79.899 Other long term (current) drug therapy
CPT/HCPCS: 36415; 80053; 80143; 80179; 80307; 83690; 85025; 99285